=== PATIENT | male | born 1985 | race Two or more races ===

== ENCOUNTER 2022-01-09 15:47 | Emergency (ER) | payer OTHER ==
[~2022-01-09] VITALS: Ht 167.6 cm; Wt 66.7 kg
[2022-01-09] MEDS ORDERED: diphenhdrAMINE HCL 25 MG CAP PO ONE (17:15)
[2022-01-09] MEDS ORDERED: methylPREDNISolone SOD SUCC 125 MG/2 ML VL IM ONE (17:15)
[2022-01-09] MEDS ORDERED: DIPH25CA66 PO (18:05)
[2022-01-09] MEDS ORDERED: METH4PAK PO (18:05)
[2022-01-09 19:56] VITALS: BP 111/75
== END 2022-01-09 19:57 | disposition home or self-care (01) ==
LOC: ER 15:47
DX: T78.40XA Allergy, unspecified, initial encounter (principal); Z79.899 Other long term (current) drug therapy; Y92.89 Other specified places as the place of occurrence of the external cause
CPT/HCPCS: 96372; 99283; J2930